=== PATIENT | male | born 1975 | race Caucasian/White ===

== ENCOUNTER 2021-07-02 22:31 | Emergency (ER) | payer OTHER ==
[2021-07-03 00:18] LABS: HEMOGLOBIN 17.8 gm/dl (14.0-17.5); RED BLOOD COUNT 5.78 M/UL (4.20-5.50); WHITE BLOOD COUNT 14.5 K/UL (4.5-11.0)
[2021-07-03 00:25] LABS: BUN/CREATININE RATIO 20 (0-10)
[2021-07-03] MEDS ORDERED: KEPPRA 500 MG500 MG GT (01:47)
== END 2021-07-03 02:56 | disposition home or self-care (01) ==
LOC: ER1 22:31
PROVIDERS: Family Medicine
DX: R56.9 Unspecified convulsions (principal); F19.239 Other psychoactive substance dependence with withdrawal, unspecified
CPT/HCPCS: 80053; 85025; 93005; 96374; 99285; J1953